=== PATIENT | male | born 1960 | race American Indian/Alaskan Native ===

== ENCOUNTER 2019-04-01 10:35 | Day surgery (SDC) | payer OTHER ==
--- NOTE | 2019-04-01 11:24 | Anesthesia Day of Surgery ---
Anesthesia Day of Surgery - Day of Surgery Patient Examined: Yes Patient H&P Reviewed: Yes Patient is NPO: Yes
--- NOTE | 2019-04-01 11:25 | Anesthesia Consultation ---
Anesthesia Consult and Med Hx Date of service: 04/01/19 - Airway Anesthetic Teeth Evaluation: Good ROM Head & Neck: Adequate Mental/Hyoid Distance: Adequate Mallampati Class: Class I Intubation Access Assessment: Good - Pre-Operative Health Status ASA Pre-Surgery Classification: ASA3 Proposed Anesthetic Plan: MAC - Pulmonary Hx Sleep Apnea: Yes - Gastrointestinal Hx Gastroesophageal Reflux Disease: Yes - Endocrine Hx Non-Insulin Dependent Diabetes: Yes (FBS 158)
[2019-04-01] MEDS ORDERED: SODIUM CHLORIDE 0.9% 1000 ML 1,000 ML IV SCH (11:33)
[2019-04-01] MEDS ORDERED: LIDOCAINE MPF (2%) 20 MG/1 ML VIAL 5 ML ONE (12:00)
[2019-04-01] MEDS ORDERED: fentaNYL 100 MCG/2 ML INJ ONE (12:05)
[2019-04-01] MEDS ORDERED: PROPOFOL 200 MG/20 ML VIAL IV ONE ×2 (12:05)
[2019-04-01] MEDS ORDERED: LIDOCAINE (2%) 20 MG/1 ML VIAL 20 ML MDV INFILTRATI ONE (12:05)
--- NOTE | 2019-04-01 13:09 | Procedure Note ---
Date of procedure: 04/02/19 Pre-op diagnosis: GERD/ Colon Polyps Screening/ F/H/O Cancer (father) Post-op diagnosis: other (Mild to Moderate Erosive Esophagitis/Gastritis/soiltary,Transverse Colon Poyp (removed Hot,Snare Polypectomy)/Minor,Left Colon Diverticuli and Minor External Hemorrhoid) Anesthesia: [facility] [place] Surgeon: VIELKA WEI Estimated blood loss: minimal Pathology: list Specimen disposition: to lab Condition: stable Disposition: same day (Treat with PPI. Avoid aspirin and NSAID and anticoagulants for 4 days; otherwise resume home medication. follow up in 1 to 2 weeks ([phone]).Encourage fiber intake.)
[2019-04-01 13:39] VITALS: BP 120/69
--- NOTE | 2019-04-01 13:40 | Post Anesthesia Evaluation ---
- Post Anesthesia Evaluation Patient Participated: Yes Airway Patent: Yes Stable Respiratory Function: Yes Nausea/Vomiting: No Temp > 96.8F: Yes Pain Manageable: Yes Adequeate Hydration: Yes Anesthesia Complications: No Block Receding Appropriately: Not Applicable Patient on Ventilator: No
--- NOTE | 2019-04-01 13:44 | Operative Report ---
PROCEDURE: Esophagogastroduodenoscopy with biopsy. INDICATIONS: This is a 58-year-old -[place] gentleman with an underlying history of diabetes mellitus and hypertension, family history of cancer. The patient lately has been having some GERD symptoms. EGD was done to assess for the problem. Procedure was done after getting informed consent with MAC anesthesia. Instrument was passed through the hypopharynx into the esophagus, which showed some mild to moderate erosive esophagitis. Photo documentation and biopsy was done from the distal esophagus. Stomach showed antral erosion and gastritis as well as erosion involving the proximal stomach. Biopsy was done from the gastric antrum, the angular incisura to rule out for H. pylori. Additional biopsy was also done from the gastric body. The pylorus is patent. The duodenum in the first and second portion appeared normal. There was minimal bleeding from the biopsy sites and no complications associated with the procedure. ASSESSMENT: Gastroesophageal reflux disease symptoms, mild to moderate erosive esophagitis, gastric erosion, gastritis. PLAN: Treat the patient with PPI and to do a colonoscopy as part of colon polyp screening, have the patient avoid aspirin and aspirin-related products and anticoagulants for the next 4 days, but otherwise resume home medication. Treat the patient with PPI. The patient's procedure was done in the GI lab with assistance of the GI lab team, which included CARLYLE Phillips and loreta Laboy and assistance of anesthesia. JOB# [id number] TYLER/ADA
--- NOTE | 2019-04-01 13:44 | Operative Report ---
PROCEDURE: Colonoscopy with hot snare polypectomy. INDICATIONS: This is a 58-year-old -[place] gentleman with an underlying history of diabetes and hypertension, family history of cancer who had EGD done prior to the colonoscopy, which showed presence of [id number] erosive esophagitis, gastric erosion, gastritis. Colonoscopy was done as part of colon polyp screening. The patient's father had a history of cancer. PROCEDURE: Initial rectal exam was unremarkable other than for some minor external hemorrhoids. Instrument was passed through the rectum onto the cecum, which was identified with ileocecal valve and appendiceal orifice. Visualization was fair. The mucosa was washed with copious amounts of water. The cecum was visualized in the retroverted view. No additional pathology was noted in the cecum or the ascending colon. The scope was withdrawn to the hepatic flexure and reintroduced. Again, there were not any additional findings noted. Cecum, ascending colon, most of the transverse colon showed normal mucosa. In the mid transverse colon, there was a 10 mm polyp on a stalk which was removed by hot snare polypectomy and retrieved. The remaining part of the transverse colon showed normal mucosa. There were a few diverticula noted in the left colon and the rectum appeared normal on the retroverted view. Again, there was minimal bleeding from the polypectomy site and there appeared to be a small polyp in the rectum, which has flattened and could not be visualized later and was not removed as it might have been a fold. ASSESSMENT: Colon polyp screening, family history of cancer. Solitary transverse colon polyp, which was on a stalk that was removed by hot snare polypectomy and retrieved. Few left colon diverticula and minor external hemorrhoid. Again, there was minimal bleeding associated with the procedure. No complications associated with the procedure. The patient will be encouraged to take fiber supplements, treated with PPI because of the EGD findings of esophagitis, gastritis. Advised to avoid aspirin and aspirin-related products and anticoagulants for the next 4 days, but otherwise resume home medication and follow up in the office in 1-2 weeks' time. The procedure was done in the GI lab with assistance of the GI lab team, which included CARLYLE Phillips, loreta Laboy and assistance of anesthesia. JOB# [id number] TYLER/ADA
== END 2019-04-01 10:36 | disposition home or self-care (01) ==
LOC: GIO 10:35
DX: Z12.11 Encounter for screening for malignant neoplasm of colon (principal); K63.5 Polyp of colon; K29.50 Unspecified chronic gastritis without bleeding; B96.81 Helicobacter pylori [H. pylori] as the cause of diseases classified elsewhere; K21.0 Gastro-esophageal reflux disease with esophagitis; E11.9 Type 2 diabetes mellitus without complications; I10 Essential (primary) hypertension; K64.8 Other hemorrhoids; K57.30 Diverticulosis of large intestine without perforation or abscess without bleeding; K31.89 Other diseases of stomach and duodenum; Z80.0 Family history of malignant neoplasm of digestive organs; Z79.84 Long term (current) use of oral hypoglycemic drugs; Z79.899 Other long term (current) drug therapy
CPT/HCPCS: 43239; 45385; 82962; 88305; 88342; J2704; J3010